=== PATIENT | male | born 1975 | race Caucasian/White ===

== ENCOUNTER 2017-05-29 12:00 | Emergency (ER) | payer OTHER ==
[~2017-05-29] VITALS: Ht 180.3 cm; Wt 100.0 kg
[2017-05-29 12:06] VITALS: BP 141/87
[2017-05-29] MEDS ORDERED: KETOROLAC 30 MG/1 ML ONE (12:51)
[2017-05-29] MEDS ORDERED: METHOCARBAMOL 750 MG TABLET ONE (12:51)
[2017-05-29] MEDS ORDERED: METHOCARBAMOL 750 MG TABLET PO ONE (13:00)
[2017-05-29] MEDS ORDERED: KETOROLAC 30 MG/1 ML IM ONE (13:00)
== END 2017-05-29 14:04 | disposition home or self-care (01) ==
LOC: ED 13:35
DX: S39.012A Strain of muscle, fascia and tendon of lower back, initial encounter (principal); S29.012A Strain of muscle and tendon of back wall of thorax, initial encounter; M47.896 Other spondylosis, lumbar region; X58.XXXA Exposure to other specified factors, initial encounter; Y93.89 Activity, other specified; Y92.89 Other specified places as the place of occurrence of the external cause; Y99.9 Unspecified external cause status
CPT/HCPCS: 72072; 72110; 96372; 99284; J1885